=== PATIENT | female | born 1960 | race Caucasian/White ===

== ENCOUNTER → 2016-10-30 | Outpatient (CLI) | payer BC ==
[~2016-10-30] MED LIST: ASTELIN137 MCG INH; BENADRYL ALLERG25 MG PO; BYSTOLIC20 MG PO; CIPRO PO; DIOVAN HCT 160/1 TAB; EFFEXOR; FLOMAX0.4 M1 PO; HYDROCODON-ACE1 EAC9 PO; NASONEX17 GM; NEXIUM PO; NORMODYNE; PLAVIX; PREDNISONE PO; PRILOSEC40 MG; TOPAMAX PO; VICODIN 5/500 T1 TAB PO; VITAMIN B 12; ZETIA; ZOCOR PO; ZOLOFT PO
--- NOTE | ~2016-10-30 | CT55 ---
[facility] A Service of [facility] & [facility] RADIOLOGY TEXT RESULTS PATIENT: BENIGNO MALONEY LOCATION: [facility] : 62 UNIT #: [id number] AGE: [address]: Praveena Palacios SEX: F ORDER DR: [id number] [facility] [address] [place], [place] [address] [id number] O MR#: [id number] #: [id number] NAME: BENIGNO MALONEY : 1960 SEX: F STUDY DATE/TIME: 10/30/2016 18:38 UNIT: [facility] ROOM: STUDY DESCRIPTION: CT Chest W Con Attending Physician: Praveena Palacios A.P.R.N. Ordering Physician: Praveena Palacios A.P.R.N. Primary Care Physician: Rama Gaytan M.D. MEDICAL IMAGING REPORT This report is preliminary unless electronic signature is present EXAM CT chest with contrast, 10/30/2016, 1838 hours. CLINICAL HISTORY 56-year-old woman for followup of mediastinal lymphadenopathy and left lung nodule seen on CT 05/13/2016. No acute chest complaints today. COMPARISON 05/13/[address] abdomen 03/09/2014. TECHNIQUE This CT exam was performed with one or more of the following radiation dose reduction techniques: automatic exposure control, adjustment of mA and/or kV according to patient size, and iterative reconstruction. FINDINGS Images through the thoracic inlet demonstrate no definite thyroid lesion. There is no supraclavicular adenopathy. Images through the chest demonstrates stable tiny superior mediastinal lymph nodes. There are pathologically enlarged mediastinal and hilar AND infrahilar lymph nodes which are not significantly changed. Example left hilar node is 2.7 cm, previously 2.6 cm. Example right hilar node is 3 cm, previously 3.1 cm. Subcarinal node is 1.6 cm, previously 1.8 cm. There are small nodular densities in both lungs upper and lower, some of which are ground-glass and some which appear more solid. These are not significantly changed. A few measure a few millimeters larger and a few measure a few millimeters smaller. Right lower lobe nodule measures 7 mm, previously 5 mm. 2 adjacent nodules at the left base are stable measuring 5 and 7 mm. There are no definite new nodules. There are no effusions. Limited views through the upper abdomen demonstrate cholecystectomy change. There is no splenomegaly or lymphadenopathy. The adrenal glands are normal. [facility] A Service of [facility] RADIOLOGY TEXT RESULTS PATIENT: BENIGNO MALONEY LOCATION: [facility] : 62 UNIT #: [id number] AGE: [address]: Praveena Palacios SEX: F ORDER DR: TYLER CT chest with contrast is not appreciably changed from 05/13/2016. There are persistent pathologically enlarged noncalcified mediastinal and hilar lymph nodes with peripheral noncalcified nodules in both lungs. These findings are stable compared to 05/13/2016. Stability would suggest that malignancy such as lymphoma or metastatic disease is less likely. Consider sarcoidosis. Dictated by... Jacinda Hull M.D. THIS IS AN ELECTRONICALLY VERIFIED REPORT Jacinda Hull M.D. at 11/02/2016 2:30 PM SAEID/lennie TD: 11/02/2016 10:31 JOB #: [id number] MEDICAL IMAGING REPORT Page 1 of 1 COPY
[2016-10-30 19:06] LABS: POC - CREATININE 0.87 mg/dL (0.44-1.03); POC - GFR >60.0 mL/min (>60)
== END | disposition home or self-care (01) ==
LOC: CCAT 17:48
PROVIDERS: Nurse Practitioner Adult Health
DX: R93.8 Abnormal findings on diagnostic imaging of other specified body structures (principal); R59.9 Enlarged lymph nodes, unspecified; R59.0 Localized enlarged lymph nodes; R91.8 Other nonspecific abnormal finding of lung field
CPT/HCPCS: 71260; 82565; Q9967